=== PATIENT | male | born 1975 | race Two or more races ===

== ENCOUNTER 2017-11-21 18:44 | Emergency (ER) | payer MEDICAID ==
[~2017-11-21] VITALS: Ht 157.5 cm; Wt 59.4 kg
--- NOTE | 2017-11-21 19:14 | NUR ---
REPORT TAKEN FROM DAY SHIFT RN. ASSUMING PT CARE AT THIS TIME.
[2017-11-21] MEDS ORDERED: IBUPROFEN 800 MG TABLET PO ONE (19:30)
--- NOTE | 2017-11-21 19:30 | NUR ---
REMA MACIAS AT BEDSIDE FOR MSE.
[2017-11-21] MEDS ORDERED: IBUPROFEN 800 MG TABLET ONE (19:38)
--- NOTE | 2017-11-21 19:40 | NUR ---
XRAY AT PT BEDSIDE FOR
--- NOTE | 2017-11-21 20:42 | NUR ---
PT RESTING IN A POSITION OF COMFORT. NO DISTRESS NOTED. PENDING FOOT XRAY RESULTS.
--- NOTE | 2017-11-21 21:07 | NUR ---
Patient discharged to home in stable conditon. Written and verbal after care instructions given. Patient verbalizes understanding of instructions. Pt ambulated from ER w/ steady gait. Pt took all personal belongings.
[2017-11-21 21:08] VITALS: BP 114/81
== END 2017-11-21 21:08 | disposition home or self-care (01) ==
LOC: ER 18:44
DX: S92.421A Displaced fracture of distal phalanx of right great toe, initial encounter for closed fracture (principal); E11.9 Type 2 diabetes mellitus without complications; X58.XXXA Exposure to other specified factors, initial encounter; Y93.89 Activity, other specified; Y92.89 Other specified places as the place of occurrence of the external cause; Y99.8 Other external cause status
CPT/HCPCS: 73630; A4663